=== PATIENT | male | born 1945 | race Caucasian/White ===

== ENCOUNTER 2017-03-17 10:01 | Emergency (ER) | payer MEDICARE, OTHER ==
--- NOTE | 2017-03-17 10:31 | ERNOTE ---
Chest Pain/Cardiac HPI Date of Service: 03/17/17 Chief Complaint: Palpitations Time Seen by Provider: 03/17/17 10:10 Source: patient Exam Limitations: no limitations Immunizations: IMMUNIZATION HX Immunizations Up to Date Yes History of Influenza Vaccine No Hx Pneumococcal Vaccination No Allergies/Adverse Reactions: Allergies povidone-iodine [From Betadine] Adverse Reaction (Mild, Verified 03/17/17 10:12) RASH TOPICAL IODINE ALLERGY soap [From Betadine] Adverse Reaction (Mild, Verified 03/17/17 10:12) RASH TOPICAL IODINE ALLERGY Home Medications: HOME MEDICATIONS Calcium/Mag Oxide/Vitamin D3 [Coral Calcium Capsule] 1 each PO DAILY 12/20/13 [ Last Taken 02/10/14] Lisinopril [Zestril] 10 mg PO DAILY 12/20/13 [Last Taken 02/11/14 07:00] Magnesium Oxide/Magnesium [Magnesium 300 mg Capsule] 300 mg PO DAILY 12/20/13 [ Last Taken 02/10/14 09:00] oxyCODONE HCL/ACETAMINOPHEN [Percocet 5 MG/325 MG] 2 tab PO Q4H PRN #0 tablet [Last Taken 02/08/14] Beta-Carotene(A) W-C , E/Min [Ocuvite] 1 tab PO DAILY 03/17/17 [Last Taken Unknown] Diltiazem HCl [Cardizem] 30 mg PO TID #90 tablet 03/17/17 [Last Taken Unknown] Indomethacin 50 mg PO BID 03/17/17 [Last Taken Unknown] Multivitamin [Multivitamins] 1 each PO DAILY 03/17/17 [Last Taken Unknown] Nortriptyline HCl [Pamelor] 25 mg PO HS 03/17/17 [Last Taken Unknown] tiZANidine HCL [Tizanidine HCl] 4 mg PO Q6H PRN 03/17/17 [Last Taken Unknown] Narrative: Pt. with known history of PACs and PVCs comes in with c/o Palpitations for years that have been increasing in frequency for the past few months. Pt. is going on vacation in a week and wanted a check up with his physician before he left on vacation to make sure that everything is ok and was referred here by the youth liaison officer. Pt. denies any chest pain, dizziness, NVD, fever, recent illness or injury. Pt. states that he was seen by a sap business analyst in august for a holter and echo and everything was normal except he was diagnosed with frequent PACs and PVCs. Pt. denies any new symptoms since this visit. Review of Systems - Review of Systems Constitutional: Present: no symptoms reported. Absent: recent illness, fever, chills, weakness, fatigue, malaise EYE: Present: no symptoms reported ENT: Present: no symptoms reported Respiratory: Present: no symptoms reported. Absent: shortness of breath, cough , wheezing Cardiology: Present: palpitations. Absent: chest pain, syncope, edema, claudication Gastrointestinal/Abdominal: Present: no symptoms reported. Absent: nausea, vomiting, diarrhea, abdominal pain Genitourinary: Present: no symptoms reported. Absent: frequency, pain, dysuria , decreased urinary output Musculoskeletal: Present: no symptoms reported. Absent: back pain, joint pain Skin: Present: no symptoms reported. Absent: rash, dryness, change in color Neurological: Present: no symptoms reported. Absent: headache, dizziness/light- headedness, numbness, tingling All Other Systems: All systems neg except as marked - Patient's Past Medical History Patient History - Cardiac/Respiratory: Arrhythmias - Social History Smoking Status: Never smoker - Immunizations Immunizations Up to Date: Yes Hx Pneumococcal Vaccination: No History of Influenza Vaccine: No Physical Exam - Physical Exam General Appearance: Present: wd/wn, alert, no apparent distress Head Exam: Present: normal inspection, no evidence of injury Eye Exam: Normal inspection: bilateral, PERRL: bilateral, EOMI: bilateral Ears, Nose, Throat: Present: normal ENT inspection, normal pharynx Neck: Present: normal inspection, nontender. Absent: lymphadenopathy (R), lymphadenopathy (L) Respiratory: Present: no respiratory distress, normal breath sounds, no accessory muscle use, chest nontender, lungs clear Cardiovascular/Chest: Present: regular rate, rhythm, no murmur, normal peripheral pulses Gastrointestinal/Abdominal: Present: normal bowel sounds, nontender, nondistended, soft Back Exam: Present: normal inspection Extremity Exam: Present: normal inspection Neurological Exam: Present: alert, oriented, normal mood/affect, no motor/ sensory deficits Skin Exam: Present: normal color, warm/dry. Absent: pallor, skin rash ED Progress - Date and Time Seen: Date and Time: 03/17/17 11:13 Pt. with boarderline cardiomegaly and mild interstitial edema but no elevated enzymes or evidence of heart attack 03/17/17 11:[address] Guerrier and he feels that results are likely related to occasional atrial arrrythmia and will start pt. on Cardizem 30 mg TID and he will follow up after his vacation. - Results and Orders Patient's Lab Results:: I have reviewed the patient's lab results. - Vital Signs Patient's Vital Signs:: I have reviewed the patient's vital signs. Vital Signs: Vital Signs 03/17/17 10:08 Temperature 36.7 C Pulse Rate 88 Respiratory 16 Rate Blood Pressure 177/74 O2 Sat by Pulse 99 Oximetry - EKG EKG: NSR, premature ventricular contraction - PAC, other EKG read: Reviewed by me EKG Comments: Interp by Dr Raymond - X-Ray X-Ray #1 X-Ray: chest Interpretation: Reviewed by me X-ray Comments: Borderline cardiomegaly and interstitial edema mild - Progress/Reassessment Chief Complaint: Palpitations Departure Clinical Impression: PAC (premature atrial contraction) - Departure Disposition: Home self-care Condition: Good Instructions: Heartbeats (How the Heart Works) Additional Instructions: Please make appointment to follow up with Dr Guerrier after you return from vacation. Please start cardizem three times a day as directed. Referrals: Sania Davis MD [Primary Care Provider] - Prescriptions: Diltiazem HCl [Cardizem] 30 mg PO TID #90 tablet
[2017-03-17 10:33] LABS: Hematocrit 41.2 % (42.0-52.0); Hemoglobin 13.8 gm/dL (13.5-18.0); Mean Cell Volume 84.4 fl (78-100); Mean Corpuscular Hemoglobin 28.3 pg (27-31); Mean Corpuscular Hgb Conc 33.5 g/dl (32-36); Mean Platelet Volume 9.9 fl (6.0-9.5); Neutrophil # 3.9 K/mm3 (1.3-6.0); Neutrophil % 67.2 % (42-75.0); Platelet Count 257 K/mm3 (150-450); Red Blood Count 4.88 M/mm3 (4.7-6.0); Red Cell Distribution Width 14.1 % (11.5-14.0); White Blood Count 5.7 K/mm3 (4.0-10.5)
[2017-03-17 10:55] LABS: Troponin I Less than 0.017 ng/ml (0.00-0.10)
[2017-03-17 10:58] LABS: ALT 18 U/L (19-67); AST 16 U/L (0-48); Albumin * 3.4 gm/dl (3.4-5.0); Alkaline Phosphatase * 86 U/L (50-170); Anion Gap 10.6 mmol/L (6.8-13.8); Bilirubin, Total 0.5 mg/dL (0.0-1.1); Blood Urea Nitrogen 18 mg/dL (6-23); Ca. Corrected For Albumin 9.2 mg/dL (8.4-10.2); Carbon Dioxide 27.7 mmol/L (24-32.6); Chloride 105 mmol/L (97-106); Glucose * 173 mg/dL (70-110); Potassium 4.3 mmol/L (3.4-4.6); Sodium 139 mmol/L (132-142); TSH * 1.128 uIU/mL (0.358-3.74); Total Protein 7.1 gm/dL (6.2-8.2)
[2017-03-17 11:32] VITALS: BP 141/77
== END 2017-03-17 11:47 | disposition home or self-care (01) ==
LOC: ER 10:01
DX: I49.1 Atrial premature depolarization (principal)

== ENCOUNTER 2018-09-09 00:46 | Inpatient (IN) ==
[2018-09-09] MEDS ORDERED: ALBUTEROL SULFATE/IPRATROPIUM 3 ML NEBU IH ONE ×2 (01:25→01:26)
[2018-09-09] MEDS ORDERED: NORMAL SALINE 500 ML IV ONE ×2 (01:30→02:17)
[2018-09-09 01:37] LABS: Hematocrit 33.6 % (42.0-52.0); Hemoglobin 11.1 gm/dL (13.5-18.0); Mean Cell Volume 88.4 fl (78-100); Mean Corpuscular Hemoglobin 29.2 pg (27-31); Mean Platelet Volume 10.2 fl (8-11.3); Platelet Count 220 K/mm3 (150-450); Red Cell Distribution Width 18.2 % (11.5-14.0); White Blood Count 2.9 K/mm3 (4.0-10.5)
[2018-09-09 01:52] LABS: Albumin * 2.2 gm/dl (3.4-5.0); Anion Gap 15.7 mmol/L (6.8-13.8); BUN/Creatinine Ratio 22.3 (9.0-21.6); Bilirubin, Total 0.5 mg/dL (0.0-1.1); Ca. Corrected For Albumin 8.5 mg/dL (8.4-10.2); Calcium * 7.4 mg/dL (7.9-10.9); Carbon Dioxide 21.5 mmol/L (24-32.6); Potassium 4.2 mmol/L (3.4-4.6); Total Protein 6.7 gm/dL (6.2-8.2)
[2018-09-09 01:53] LABS: Total Cells Counted 100
--- NOTE | 2018-09-09 02:03 | ERNOTE ---
Dyspnea - General Presenting Symptoms: shortness of breath, difficulty of breathing, wheezing Time Seen by Provider: 09/09/18 01:20 Source: patient, family, RN/MD, RN notes reviewed Exam Limitations: no limitations - Immun/Allergies/Home Medications Immunizations: IMMUNIZATION HX Immunizations Up to Date Yes History of Influenza Vaccine No Hx Pneumococcal Vaccination No Allergies/Adverse Reactions: Allergies povidone-iodine [From Betadine] Adverse Reaction (Mild, Verified 08/17/18 16:27) RASH TOPICAL IODINE ALLERGY soap [From Betadine] Adverse Reaction (Mild, Verified 08/17/18 16:27) RASH TOPICAL IODINE ALLERGY nabumetone Adverse Reaction (Verified 08/17/18 16:27) Home Medications: HOME MEDICATIONS RX: Magnesium Oxide/Magnesium [Magnesium 300 mg Capsule] 300 mg PO DAILY 12/20/13 [Last Taken 02/10/14 09:00] Multivitamin [Multivitamins] 1 each PO DAILY 03/17/17 [Last Taken Unknown] Apixaban [Eliquis] 5 mg PO BID 05/24/18 [Last Taken Unknown] Calcium Carbonate/Vitamin D3 [Calcium 600-Vit D3 500 Softgel] 1 each PO DAILY 05/24/18 [Last Taken Unknown] Ferrous Fum/Vit C/B12-If/Folic [Ferocon Capsule] 1 each PO DAILY 05/24/18 [Last Taken Unknown] Pioneer-3 Fatty Acids [Pioneer-3 1000 MG] 1,000 mg PO DAILY 05/24/18 [Last Taken Unknown] Pregabalin [Lyrica] 75 mg PO HS 05/24/18 [Last Taken Unknown] RX: Amiodarone HCl 200 mg PO DAILY 05/24/18 [Last Taken Unknown] RX: Saw [place] 320 mg PO DAILY 05/24/18 [Last Taken Unknown] Ubidecarenone/Vit E Acet [Co Q-10 100 mg Softgel] 1 each PO BID 05/24/18 [Last Taken Unknown] Vit D3/Folic Acid/B2/B6/B12 [Folgard Tablet] 1 each PO TID 05/24/18 [Last Taken Unknown] Dexamethasone [Decadron] 40 mg PO Q7D 30 Days #90 tab 06/07/18 [Last Taken Unknown] L.acidoph,Paracasei, B.lactis [Probiotic] 1 ea PO DAILY 08/01/18 [Last Taken Unknown] lisinopril 10 mg tablet 10 mg PO DAILY #90 tab 08/03/18 [Last Taken Unknown] - History of Present Illness Narrative: The patient is a 73-year-old male who arrives in the emergency department by private vehicle, with a chief complaint of shortness of breath associated with a cough for the last 2 weeks, "but it has been getting much worse over the last 36 hours, I am having a real hard time breathing right now." When the patient arrived in the ED, he had a 78% O2 saturation on room air, and was in marked respiratory distress, very tachypneic, with accessory muscles in use, and was a pale, ashen color. The patient states that he has a history of multiple myeloma, and saw his oncologist (Carlos Alberto Panchal) 2 weeks ago, "When I first started to get sick," and the patient was given a Z-Jeremy (azithromycin) and a metered-dose inhaler of albuterol. The patient completed the Z-Jeremy as ordered, and has continued to use the albuterol MDI, but has gotten significantly more sick over the last 36 hours, after he initially "started to feel better." The patient has a prior history of atrial fibrillation and takes amiodarone to control that. His primary care provider is Sania Davis. Severity: severe Treatment WATCH MECHANIC: by patient, albuterol Initiating event: Reports: upper resp illness Frequency of episodes: Reports: no prior episodes Modifying Factors - (Improves): Reports: albuterol Modifying Factors (Worsens): Reports: activity, coughing, cold Associated Symptoms-Dyspnea: Reports: cough, wheezing, anxiety Prior Treatment: Reports: recently seen, treated by physician Review of Systems - Review of Systems Constitutional: Present: weakness, fatigue, malaise EYE: Present: no symptoms reported ENT: Present: nose congestion, sore throat Respiratory: Present: shortness of breath, cough, wheezing Cardiology: Present: palpitations Gastrointestinal/Abdominal: Present: no symptoms reported Genitourinary: Present: no symptoms reported Musculoskeletal: Present: no symptoms reported Skin: Present: no symptoms reported Neurological: Present: numbness, tingling, pre-existing deficit - The patient has a persistent cough, he has had loud wheezing that keeps him awake at night, in combination with shortness of breath and coughing. 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 Endocrine: Present: no symptoms reported Hematologic/Lymphatic: Present: no symptoms reported Psych: Present: anxiety Medical History (Last Reviewed 09/09/18 @ 00:59 by Antoinette Huffman RN) Arthritis Atrial fibrillation Onset Date: ~05/2017 Irregular heart beat Multiple myeloma Onset Date: ~03/2017 Neuropathy secondary to chemotherapy Surgical History: Surgical History (Last Reviewed 09/09/18 @ 00:59 by Antoinette Huffman RN) Status post bilateral knee replacements Onset Date: ~2012 Family History: Family History (Last Reviewed 09/09/18 @ 00:59 by Antoinette Huffman RN) Mother Breast cancer Hypertension Father Pancreatic cancer Father Tumor of retina Daughter Breast cancer Sister Hypertension Asthma Social History: Preferred Language Yakut Smoking Status Never smoker Abuse History No History of abuse Psych History No pertinent hx Alcohol Use none Drug Use none No Social History Section defined Physical Exam - Physical Exam General Appearance: Present: alert, severe distress, anxious, obese Head Exam: Present: normal inspection, no evidence of injury, no tenderness w palpation. Absent: active bleeding, contusions, ecchymosis Eye Exam: Normal inspection: bilateral, PERRL: bilateral, EOMI: bilateral Ears, Nose, Throat: Present: nasal congestion, pharyngeal erythema, dry mucous membranes. Absent: sinus pain/drainage, tonsillar exudate Neck: Present: normal inspection, nontender, supple, full range of motion Respiratory: Present: respiratory distress, accessory muscle use, expiration (prolonged), rhonchi, wheezing. Absent: rales, pleural rub Cardiovascular/Chest: Present: regular rate, rhythm, no murmur, normal peripheral pulses Gastrointestinal/Abdominal: Present: normal bowel sounds, nontender, nondistended, soft, no organomegaly. Absent: guarding, rebound, mass Back Exam: Present: normal inspection, normal range of motion, no CVA tenderness, no vertebral tenderness Extremity Exam: Present: normal inspection, normal except -, non-tender, normal range of motion, no edema Neurological Exam: Present: alert, oriented, normal mood/affect, sales promoter II-XII nml as tested. Absent: facial droop, motor weakness, disoriented to person, disoriented to time, disoriented to place, disoriented to situation Skin Exam: Present: cool/dry, pallor. Absent: skin rash Lymphatic Exam: Present: no adenopathy Progress - Results and Orders Patient's Lab Results:: I have reviewed the patient's lab results. - Vital Signs Patient's Vital Signs:: I have reviewed the patient's vital signs. Vital Signs: Vital Signs 09/09/18 00:54 Temperature 37.0 C Pulse Rate 95 Respiratory Rate 26 H Blood Pressure 144/70 O2 Sat by Pulse Oximetry 78 L - EKG EKG #1 EKG read: Reviewed by me EKG Comments: EKG #1 on this ED admission shows a sinus rhythm at a rate of 99 with frequent supraventricular premature complexes that are normal complexes in with. No ST-T changes to suggest ischemia are noted. Compared to the most previous EKG on file dated for November 14, 2018 that showed a normal sinus rhythm at a rate of 87, with frequent premature atrial complexes. EKG #2 EKG: supraventricular tachycardia, atrial flutter, ST depression EKG read: Reviewed by me EKG Comments: EKG #2 during this ED admission was performed because the patient's heart rate increased above 120, he was found to be in atrial flutter/tachycardia, with a rapid ventricular response of 128, and moderate diffuse ST depression was noted. EKG #3 EKG read: Reviewed by me EKG Comments: EKG #3 was done 2 minutes after EKG #2 was collected, the patient was back into a sinus rhythm with a rate of 96, with frequent ventricular premature complexes that were narrow with, with occasional supraventricular premature complexes, also narrow and with, 1 PVC was noted, with no significant ST-T changes consistent with ischemia seen. - X-Ray X-Ray #1 X-Ray: chest Interpretation: Interp. by me, Reviewed by me X-ray Comments: Patient's chest x-ray shows no obvious infiltrates to suggest acute pneumonitis. - Progress/Reassessment Chief Complaint: Dyspnea Progress:: Improved Progress Note-Subjective: 09/09/18 03:57 After being given a DuoNeb breathing treatment, the patient states that he was breathing easier, with less wheezing, less tightness in his chest, and his work of breathing was decreased substantially compared to when he first arrived in the emergency department. - Transfer of Care Expected Disposition: Admit Plan - Plan Plan: The patient was discussed at 4:[address] Sonia Hartmann, the on-call physician for medicine admissions to the hospital. We discussed the fact that the patient exhibited acute respiratory failure with hypoxemia when first admitted to the emergency department. The patient is still significantly hypoxemic, requiring 4 L of nasal cannula oxygen to keep SaO2 greater than 90%. Chest x-ray shows no obvious infiltrate consistent with acute pneumonia, however serology shows influenza A infection. Dr. Hartmann requested that I discuss Mr. Webb's care with an infectious disease bridal stylist sales consultant at the [facility] in [place]. I discussed the patient's case with Rancho Jones MD, and infectious disease bridal stylist sales consultant at the [facility], and he recommended treating the patient with Tamiflu for the influenza A test being positive, as the patient's acute decompensation over the last 36 hours may suggest this was caused by being infected recently with influenza A. He would also recommend covering the patient with cefepime antibiotic, given the fact the patient is immune suppressed, on chemotherapy for multiple myeloma. Holding orders were written for the patient and he was transferred to an inpatient observation bed, awaiting Dr. Hartmann to see the patient and write additional orders. The patient was in stable and improved condition at the time of transfer from the emergency department to the inpatient layne. Departure Clinical Impression: Acute respiratory failure with hypoxemia, Intermittent palpitations, IgG myeloma, Influenza A - Departure Disposition: Short Term Hospital Inpatient Condition: Fair
[2018-09-09 02:13] LABS: Band 6 % (0-2.0); Lymphocyte 5 % (20-51); Monocyte 4 % (0-9); Neutrophil 85 % (42-75); Neutrophil # 2.5 K/mm3 (1.3-6.0); Platelet Estimate Normal (NORMAL)
[2018-09-09 02:14] LABS: Anisocytosis 2+
[2018-09-09] MEDS ORDERED: OSELTAMIVIR PHOSPHATE 75 MG CAPSULE PO ONE (05:49)
[2018-09-09] MEDS ORDERED: CEFEPIME HCL 1 GM/100 ML BAG IV ONE (05:51)
[2018-09-09] MEDS: AMIODARONE HCL 200 MG TABLET PO SCH (11:07)
[2018-09-09] MEDS ORDERED: ACETAMINOPHEN 325 MG TABLET PO PRN (11:24)
[2018-09-09] MEDS ORDERED: CEFEPIME HCL 2 GM in DEXTROSE 5 % IN WATER 100 ML IV SCH ×2 (11:30)
[2018-09-09] MEDS ORDERED: DEXAMETHASONE 4 MG TABLET PO SCH (11:30)
[2018-09-09] MEDS ORDERED: AMIODARONE HCL 200 MG TABLET PO SCH (12:00)
--- NOTE | 2018-09-09 12:01 | HP ---
Chief Complaint - Chief Complaint Date of Service: 09/09/18 Time of Service: 11:45 Chief Complaint: I have shortness of breath and difficulty breathing for several days History of Present Illness: 73-year-old male with past medical history of multiple myeloma, peripheral neuropathy, atrial fibrillation, hypertension, was brought to our ER due to worsening shortness of breath and eventual marked respiratory distress that has been worsening over the last 48 hours. Patient reports that he has been receiving treatment for his multiple myeloma with chemotherapy and developed a chronic hacking cough that started 2 weeks ago but afternoon he started having shortness of breath which worsened last night. Upon arriving to our ER the patient had a saturation below 80 and required oxygen therapy. Labs revealed a positive influenza A, and neutropenia secondary to his multiple myeloma. He denied fever or chills but patient is known to be immunosuppressed due to his chemotherapy so his clinical presentation is not very reliable. Medical History (Last Reviewed 09/09/18 @ 07:22 by Suri Sapp RN) Arthritis Atrial fibrillation Onset Date: ~05/2017 Irregular heart beat Multiple myeloma Onset Date: ~03/2017 Neuropathy secondary to chemotherapy Surgical History: Surgical History (Last Reviewed 09/09/18 @ 07:22 by Suri Sapp RN) Status post bilateral knee replacements Onset Date: ~2012 Family History: Family History (Last Reviewed 09/09/18 @ 07:22 by Suri Sapp RN) Mother Breast cancer Hypertension Father Pancreatic cancer Father Tumor of retina Daughter Breast cancer Sister Hypertension Asthma Social History: Patient Lives/Resources With Spouse Utilized Occupation Retired Preferred Language Maltese Do you have any yazidism or Yes: Confucianism cultural preference? Smoking Status Never smoker Have you smoked in the past 12 No months Do you dip or chew tobacco No Abuse History No History of abuse Psych History No pertinent hx Alcohol Use none Drug Use none No Social History Section defined Peds Patient Hx - Developmental: No Pertinent Hx Peds Patient Hx - Medical: No Pertinent Hx Peds Patient Hx - Cardiac/Respiratory: No Pertinent Hx Peds Patient Hx - Surgical: No Surgical History Patient History - Cancer: No Hx of Cancer Review Of Systems (GEN) - Review of Systems Generalized/Overall Review: Present: No Symptoms Reported EENTM: Present: No Symptoms Reported Respiratory: Present: Cough, Shortness of Breath Cardiac: Present: No Symptoms Reported Abdominal: Present: No Symptoms Reported Genitourinary: Present: No Symptoms Reported Musculoskeletal: Present: No Symptoms Reported Neurological: Present: No Symptoms Reported Skin: Present: No Symptoms Reported Endocrine: Present: No Symptoms Reported Immunizations: IMMUNIZATION HX Immunizations Up to Date Yes History of Influenza Vaccine No Hx Pneumococcal Vaccination No Allergies/Adverse Reactions: Allergies Allergy/AdvReac Type Severity Reaction Status Date / Time povidone-iodine AdvReac Mild RASH Verified 09/09/18 07:22 [From Betadine] soap [From Betadine] AdvReac Mild RASH Verified 09/09/18 07:22 [email or web address] AdvReac Verified 09/09/18 07:22 Home Medications: HOME MEDICATIONS Magnesium Oxide/Magnesium [Magnesium 300 mg Capsule] 300 mg PO DAILY 12/20/13 [Last Taken 02/10/14 09:00] Multivitamin [Multivitamins] 1 each PO DAILY 03/17/17 [Last Taken Unknown] Amiodarone HCl 200 mg PO DAILY@1200 05/24/18 [Last Taken Unknown] Apixaban [Eliquis] 5 mg PO BID 05/24/18 [Last Taken Unknown] Calcium Carbonate/Vitamin D3 [Calcium 600-Vit D3 500 Softgel] 1 each PO DAILY 05/24/18 [Last Taken Unknown] Ferrous Fum/Vit C/B12-If/Folic [Ferocon Capsule] 1 each PO DAILY 05/24/18 [Last Taken Unknown] [place]-3 Fatty Acids [[place]-3 1000 MG] 1,000 mg PO DAILY 05/24/18 [Last Taken Unknown] Pregabalin [Lyrica] 75 mg PO HS 05/24/18 [Last Taken Unknown] [place] 320 mg PO DAILY 05/24/18 [Last Taken Unknown] Ubidecarenone/Vit E Acet [Co Q-10 100 mg Softgel] 1 each PO BID 05/24/18 [Last Taken Unknown] Vit D3/Folic Acid/B2/B6/B12 [Folgard Tablet] 1 each PO TID 05/24/18 [Last Taken Unknown] Dexamethasone [Decadron] 40 mg PO Q7D 30 Days #90 tab 06/07/18 [Last Taken ] L.acidoph,Paracasei, B.lactis [Probiotic] 1 ea PO DAILY 08/01/18 [Last Taken Unknown] lisinopril 10 mg tablet 10 mg PO DAILY #90 tab 08/03/18 [Last Taken Unknown] Exam - Exam Vital Signs: Vital Signs - Last Taken Temp 36.9 C 09/09/18 07:10 Pulse 89 09/09/18 07:10 Resp 24 H 09/09/18 07:10 BP 143/68 09/09/18 07:10 Pulse Ox 92 L 09/09/18 07:10 Constitutional: Present: Alert, Oriented x3, Cooperative, Well developed, Well nourished, No distress, Elderly ENT Exam: Present: normal ENT inspection, hearing grossly normal, pharynx normal, TMs normal Eye Exam: bilateral eye: normal inspection, PERRL, EOMI Neck: Present: non-tender, full range of motion, supple, normal inspection, trachea midline Back Exam: Present: normal inspection, no CVA tenderness, no vertebral tend erness Breasts: Present: Exam deferred Respiratory: Present: crackles - Right upper lobe crackles Cardiovascular/Chest: Present: normal peripheral pulses, no chest tenderness, no edema, no gallop, no JVD, no murmur, irregularly irregular Peripheral Pulses: carotid (R): 3+, carotid (L): 3+, femoral (R): 3+, femoral (L): 3+, dorsalis-pedis (R): 3+, dorsalis-pedis (L): 3+ Abdomen: Present: Normal bowel sounds, soft, nontender, nondistended, no rebound tenderness, no hepatospenomegaly, no masses /Rectal: Present: Exam deferred Extremity: Present: normal range of motion, non-tender, normal inspection, no pedal edema, no calf tenderness, normal capillary refill, pelvis stable Skin Exam: Present: normal color, warm/dry, no cyanosis Lymphatic: Present: no adenopathy Neurologic: Present: 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 tested Appearance: Present: appropriate appearance Eye contact: Present: cooperative, good eye contact, normal speech Thoughts: Present: normal thought pattern Diagnostic Studies: Abnormal Lab Results 09/09/18 09/09/18 09/09/18 Range/Units 01:25 01:30 01:30 WBC 2.9 L (4.0-10.5) K/mm3 RBC 3.80 L (4.7-6.0) M/mm3 Hgb 11.1 L (13.5-18.0) gm/dL Hct 33.6 L (42.0-52.0) % RDW 18.2 H (11.5-14.0) % Neutrophils % (Manual) 85 H (42-75) % Band Neuts % (Manual) 6 H (0-2.0) % Lymphocytes % (Manual) 5 L (20-51) % Lymphocytes # (Manual) 0.1 L (1.5-3.5) k/mm3 pCO2 24.3 L (35.0-48.0) mmHg pO2 52.8 L (83.0-108.0) mmHg HCO3 19.1 L (21.0-28.0) mmol/L Base Excess -2.5 L (-2.0-3.0) mmol/L ABG pH 7.51 H (7.35-7.45) ABG O2 Sat (Measured) 91.2 L (94.0-98.0) % Carbon Dioxide 21.5 L (24-32.6) mmol/L Anion Gap 15.7 H (6.8-13.8) mmol/L BUN/Creatinine Ratio 22.3 H (9.0-21.6) Random Glucose 156 H (70-110) mg/dL Calcium 7.4 L (7.9-10.9) mg/dL AST 49 H (0-48) U/L Albumin 2.2 L (3.4-5.0) gm/dl Influenza Type A Ag (NEGATIVE) 09/09/18 Range/Units 03:00 WBC (4.0-10.5) K/mm3 RBC (4.7-6.0) M/mm3 Hgb (13.5-18.0) gm/dL Hct (42.0-52.0) % RDW (11.5-14.0) % Neutrophils % (Manual) (42-75) % Band Neuts % (Manual) (0-2.0) % Lymphocytes % (Manual) (20-51) % Lymphocytes # (Manual) (1.5-3.5) k/mm3 pCO2 (35.0-48.0) mmHg pO2 (83.0-108.0) mmHg HCO3 (21.0-28.0) mmol/L Base Excess (-2.0-3.0) mmol/L ABG pH (7.35-7.45) ABG O2 Sat (Measured) (94.0-98.0) % Carbon Dioxide (24-32.6) mmol/L Anion Gap (6.8-13.8) mmol/L BUN/Creatinine Ratio (9.0-21.6) Random Glucose (70-110) mg/dL Calcium (7.9-10.9) mg/dL AST (0-48) U/L Albumin (3.4-5.0) gm/dl Influenza Type A Ag Positive H (NEGATIVE) Laboratory Results WBC 2.9 K/mm3 (4.0-10.5) L 09/09/18 01:30 RBC 3.80 M/mm3 (4.7-6.0) L 09/09/18 01:30 Hgb 11.1 gm/dL (13.5-18.0) L 09/09/18 01:30 Hct 33.6 % (42.0-52.0) L 09/09/18 01:30 MCV 88.4 fl (78-100) 09/09/18 01:30 MCH 29.2 pg (27-31) 09/09/18 01:30 MCHC 33.0 g/dl (32-36) 09/09/18 01:30 RDW 18.2 % (11.5-14.0) H 09/09/18 01:30 Plt Count 220 K/mm3 (150-450) 09/09/18 01:30 MPV 10.2 fl (8-11.3) 09/09/18 01:30 Neutrophils % (Manual) 85 % (42-75) H 09/09/18 01:30 Band Neuts % (Manual) 6 % (0-2.0) H 09/09/18 01:30 Lymphocytes % (Manual) 5 % (20-51) L 09/09/18 01:30 Monocytes % (Manual) 4 % (0-9) 09/09/18 01:30 Neutrophils # (Manual) 2.5 K/mm3 (1.3-6.0) 09/09/18 01:30 Lymphocytes # (Manual) 0.1 k/mm3 (1.5-3.5) L 09/09/18 01:30 Monocytes # (Manual) 0.1 k/mm3 (0.0-1.0) 09/09/18 01:30 Platelet Estimate Normal (NORMAL) 09/09/18 01:30 Anisocytosis 2+ 09/09/18 01:30 pCO2 24.3 mmHg (35.0-48.0) L 09/09/18 01:25 pO2 52.8 mmHg (83.0-108.0) L 09/09/18 01:25 HCO3 19.1 mmol/L (21.0-28.0) L 09/09/18 01:25 Total CO2 19.9 mmol/L (19.0-24.0) 09/09/18 01:25 Base Excess -2.5 mmol/L (-2.0-3.0) L 09/09/18 01:25 ABG pH 7.51 (7.35-7.45) H 09/09/18 01:25 ABG O2 Sat (Measured) 91.2 % (94.0-98.0) L 09/09/18 01:25 Sodium 134 mmol/L (132-142) 09/09/18 01:30 Plasma Sodium 135 mmol/L (130-142) 09/09/18 01:30 Potassium 4.2 mmol/L (3.4-4.6) 09/09/18 01:30 Chloride 101 mmol/L (97-106) 09/09/18 01:30 Carbon Dioxide 21.5 mmol/L (24-32.6) L 09/09/18 01:30 Anion Gap 15.7 mmol/L (6.8-13.8) H 09/09/18 01:30 BUN 23 mg/dL (6-23) 09/09/18 01:30 Creatinine 1.03 mg/dL (0.4-1.4) 09/09/18 01:30 Est GFR (Non-Af Amer) 75 mL/min (60-130) D 09/09/18 01:30 BUN/Creatinine Ratio 22.3 (9.0-21.6) H 09/09/18 01:30 Random Glucose 156 mg/dL (70-110) H 09/09/18 01:30 Calcium 7.4 mg/dL (7.9-10.9) L 09/09/18 01:30 Calcium Adj for Albumin 8.5 mg/dL (8.4-10.2) 09/09/18 01:30 Total Bilirubin 0.5 mg/dL (0.0-1.1) 09/09/18 01:30 AST 49 U/L (0-48) H 09/09/18 01:30 ALT 53 U/L (19-67) 09/09/18 01:30 Alkaline Phosphatase 92 U/L (50-170) 09/09/18 01:30 Troponin I Less than 0.017 ng/mL (0.00-0.10) 09/09/18 01:30 Total Protein 6.7 gm/dL (6.2-8.2) 09/09/18 01:30 Albumin 2.2 gm/dl (3.4-5.0) L 09/09/18 01:30 Influenza Type A Ag Positive (NEGATIVE) H 09/09/18 03:00 Influenza Type B Ag Negative (NEGATIVE) 09/09/18 03:00 Assessment/Plan - Narrative Narrative: Patient was evaluated at bedside and medical chart was reviewed and decision to admit to inpatient for right upper lobe pneumonia and a PSI of 4 was taken. Patient was administered Tamiflu for influenza A infection as well as IV antibiotics for the pneumonia. He was also treated with IV hydration for mild dehydration and respiratory therapy with DuoNeb which has improved his breathing. ABGs demonstrated an improvement on his blood gases so we will keep him on oxygen by nasal cannula for now and repeat ABG in the morning. Follow-up labs has been ordered for tomorrow morning to evaluate electrolytes. Sputum culture was also ordered for specific antibiotic therapy. Patient was also placed in isolation due to his immunosuppression. Patient develops periodic tachycardia secondary to his atrial fibrillation but he has been administered his regular amiodarone and heart rate has improved, will continue to monitor him on telemetry. - Assessment/Plan (1) Right upper lobe pneumonia Problem: Acute (2) Influenza A Problem: Acute (3) Multiple myeloma Problem: Acute (4) Atrial fibrillation Problem: Chronic (5) Respiratory difficulty Problem: Acute
[2018-09-09] MEDS: MULTIVITAMINS 1 CAP CAPSULE PO SCH (12:56)
[2018-09-09] MEDS: OMEGA-3 FATTY ACIDS 1 CAP CAPSULE PO SCH (12:56)
[2018-09-09] MEDS: APIXABAN 5 MG TABLET PO SCH ×2 (12:56→21:52)
[2018-09-09] MEDS: SACCHAROMYCES BOULARDII 250 MG CAPSULE PO SCH (12:56)
[2018-09-09] MEDS: CALCIUM CARBONATE/VITAMIN D3 1 TAB TABLET PO SCH (12:56)
[2018-09-09] MEDS: DOCUSATE SODIUM 100 MG CAPSULE PO SCH (12:57)
[2018-09-09] MEDS: LISINOPRIL 10 MG TABLET PO SCH (12:57)
[2018-09-09] MEDS: CEFEPIME HCL 2 GM in DEXTROSE 5 % IN WATER 100 ML IV SCH ×4 (14:11→21:53)
[2018-09-09] MEDS: SAW PALMETTO 320 MG PO SCH (14:17)
[2018-09-09] MEDS: CO Q10 100 MG PO SCH (14:17)
[2018-09-09] MEDS: FEROCON PO SCH (14:19)
[2018-09-09] MEDS: MAGNESIUM 300 MG PO SCH (14:20)
[2018-09-09] MEDS: ALBUTEROL SULFATE/IPRATROPIUM 3 ML NEBU IH PRN ×2 (16:26→22:10)
[2018-09-09] MEDS: METOPROLOL TARTRATE 25 MG TABLET PO SCH (18:02)
[2018-09-09] MEDS: OSELTAMIVIR PHOSPHATE 75 MG CAPSULE PO SCH (21:52)
[2018-09-09] MEDS: PREGABALIN 75 MG CAPSULE PO SCH (21:53)
[2018-09-10] MEDS: CEFEPIME HCL 2 GM in DEXTROSE 5 % IN WATER 100 ML IV SCH ×6 (05:45→21:30)
[2018-09-10 06:34] LABS: Albumin * 1.7 gm/dl (3.4-5.0); Anion Gap 14.6 mmol/L (6.8-13.8); BUN/Creatinine Ratio 23.6 (9.0-21.6); Bilirubin, Total 0.5 mg/dL (0.0-1.1); Calcium * 7.5 mg/dL (7.9-10.9); Carbon Dioxide 22.1 mmol/L (24-32.6); Potassium 4.7 mmol/L (3.4-4.6); Total Protein 5.5 gm/dL (6.2-8.2)
[2018-09-10] MEDS: OSELTAMIVIR PHOSPHATE 75 MG CAPSULE PO SCH ×2 (08:39→21:30)
[2018-09-10] MEDS: FAMOTIDINE 20 MG TABLET PO SCH (08:39)
[2018-09-10] MEDS: AMIODARONE HCL 200 MG TABLET PO SCH (08:39)
[2018-09-10] MEDS: METOPROLOL TARTRATE 25 MG TABLET PO SCH ×2 (08:40→21:29)
[2018-09-10] MEDS: MULTIVITAMINS 1 CAP CAPSULE PO SCH (08:48)
[2018-09-10] MEDS: LISINOPRIL 10 MG TABLET PO SCH (08:48)
[2018-09-10] MEDS: DOCUSATE SODIUM 100 MG CAPSULE PO SCH (08:48)
[2018-09-10] MEDS: APIXABAN 5 MG TABLET PO SCH ×2 (08:49→21:29)
[2018-09-10] MEDS: SACCHAROMYCES BOULARDII 250 MG CAPSULE PO SCH (08:49)
[2018-09-10] MEDS: CALCIUM CARBONATE/VITAMIN D3 1 TAB TABLET PO SCH (08:49)
[2018-09-10] MEDS: OMEGA-3 FATTY ACIDS 1 CAP CAPSULE PO SCH (08:49)
[2018-09-10] MEDS ORDERED: BENZONATATE 100 MG CAPSULE PO PRN (10:49)
--- NOTE | 2018-09-10 10:57 | PN ---
Subjective - Date and Time Seen Date: 09/10/18 Time: 10:50 Subjective Narrative: I have shortness of breath and cough Objective Objective Narrative: 73-year-old male admitted for right-sided bronchopneumonia and influ heide type a was evaluated at bedside and was found to be afebrile and in no acute distress, however patient continues with a persistent cough and occasional shortness of breath that requires treatment with DuoNeb. After the breathing treatments he reports improvement saturations also improved. Patient had an abnormal ABG this morning however pulse oximeter demonstrated a oxygen saturation of 96% with nasal cannula. Patient's respiratory function has improved since arriving and his only complaint is the cough. Therefore antitussives and decongestants were ordered. Patient has not had any recurrence of fever or chills however auscultation of his lungs demonstrate marked crackles that is worse on the right upper lobe. We will continue IV antibiotics as well as Tamiflu and keep patient hospitalized for additional days of treatment. - Review of Systems Generalized/Overall Review: Reports: Weakness EENTM: Reports: No Symptoms Reported Respiratory: Reports: Cough, Shortness of Breath Cardiac: Reports: No Symptoms Reported Abdominal: Reports: No Symptoms Reported Genitourinary Symptoms: Reports: No Symptoms Reported Musculoskeletal Complaints: Reports: No Symptoms Reported Neurological: Reports: No Symptoms Reported Skin: Reports: No Symptoms Reported Endocrine: Reports: No Symptoms Reported - Vitals Vitals: Last Vital Signs Temp 37.3 C 09/10/18 06:42 Pulse 83 09/10/18 08:48 Resp 24 H 09/10/18 06:42 BP 116/60 09/10/18 08:48 Pulse Ox 92 L 09/10/18 06:42 - Abnormal Lab Findings Abnormal Lab Findings: Abnormal Lab Results 09/09/18 09/10/18 09/10/18 Range/Units 14:22 06:00 06:10 pCO2 26.6 L 25.6 L (35.0-48.0) mmHg pO2 54.0 L 48.0 L (83.0-108.0) mmHg HCO3 20.7 L 20.9 L (21.0-28.0) mmol/L ABG pH 7.51 H 7.53 H (7.35-7.45) ABG O2 Sat (Measured) 91.5 L 89.0 L (94.0-98.0) % Potassium 4.7 H (3.4-4.6) mmol/L Carbon Dioxide 22.1 L (24-32.6) mmol/L Anion Gap 14.6 H (6.8-13.8) mmol/L BUN 26 H (6-23) mg/dL BUN/Creatinine Ratio 23.6 H (9.0-21.6) Random Glucose 122 H (70-110) mg/dL Calcium 7.5 L (7.9-10.9) mg/dL AST 52 H (0-48) U/L Total Protein 5.5 L (6.2-8.2) gm/dL Albumin 1.7 L (3.4-5.0) gm/dl - Exam Constitutional: Present: Alert, Oriented x3, Cooperative, Well developed, Well nourished, No distress, Elderly ENT Exam: Present: normal ENT inspection, hearing grossly normal, pharynx normal, TMs normal Neck: Present: non-tender, full range of motion, supple, normal inspection, trachea midline Breasts: Present: Exam deferred Respiratory: Present: crackles Cardiovascular/Chest: Present: normal peripheral pulses, regular rate, rhythm, no chest tenderness, no edema, no gallop, no JVD, no murmur Abdomen: Present: Normal bowel sounds, soft, nontender, nondistended, no rebound tenderness, no hepatospenomegaly, no masses /Rectal: Present: Exam deferred Extremity: Present: normal range of motion, non-tender, normal inspection, no pedal edema, no calf tenderness, normal capillary refill Skin Exam: Present: normal color, warm/dry, no cyanosis Lymphatic: Present: no adenopathy Neurologic: Present: 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 We will reevaluate patient with labs in the morning. In the meantime he is to remain on nasal cannula to maintain saturation above 93%. - Problems/Diagnosis (1) Right upper lobe pneumonia Problem: Acute (2) Influenza A Problem: Acute (3) Multiple myeloma Problem: Chronic (4) Atrial fibrillation Problem: Chronic (5) Respiratory difficulty Problem: Acute
[2018-09-10] MEDS ORDERED: NORMAL SALINE 1,000 ML IV ONE (11:00)
[2018-09-10] MEDS: guaiFENesin 100 MG/5 ML BTL PO PRN (15:08)
[2018-09-10] MEDS: ALBUTEROL SULFATE/IPRATROPIUM 3 ML NEBU IH PRN (15:19)
[2018-09-10] MEDS: PREGABALIN 75 MG CAPSULE PO SCH (21:29)
[2018-09-11] MEDS: CEFEPIME HCL 2 GM in DEXTROSE 5 % IN WATER 100 ML IV SCH ×6 (05:17→22:24)
[2018-09-11 06:06] LABS: Hematocrit 29.9 % (42.0-52.0); Hemoglobin 9.8 gm/dL (13.5-18.0); Mean Cell Volume 87.9 fl (78-100); Mean Corpuscular Hemoglobin 28.8 pg (27-31); Mean Corpuscular Hgb Conc 32.8 g/dl (32-36); Mean Platelet Volume 9.8 fl (8-11.3); Platelet Count 176 K/mm3 (150-450); Red Cell Distribution Width 18.1 % (11.5-14.0); White Blood Count 3.4 K/mm3 (4.0-10.5)
[2018-09-11 06:20] LABS: Total Cells Counted 100
[2018-09-11 06:28] LABS: Albumin * 1.6 gm/dl (3.4-5.0); Anion Gap 14.3 mmol/L (6.8-13.8); BUN/Creatinine Ratio 24.3 (9.0-21.6); Bilirubin, Total 0.5 mg/dL (0.0-1.1); Ca. Corrected For Albumin 9.4 mg/dL (8.4-10.2); Calcium * 7.8 mg/dL (7.9-10.9); Carbon Dioxide 22.3 mmol/L (24-32.6); Potassium 4.6 mmol/L (3.4-4.6); Total Protein 5.5 gm/dL (6.2-8.2)
[2018-09-11 06:30] LABS: Band 9 % (0-2.0); Immature Granulocyte 1 (0-1); Lymphocyte 9 % (20-51); Monocyte 3 % (0-9); Neutrophil 78 % (42-75); Neutrophil # 2.7 K/mm3 (1.3-6.0)
[2018-09-11 06:32] LABS: Anisocytosis 1+
[2018-09-11] MEDS: CO Q10 100 MG PO SCH ×4 (08:17→20:33)
[2018-09-11] MEDS: FEROCON PO SCH ×2 (08:18→08:29)
[2018-09-11] MEDS: MAGNESIUM 300 MG PO SCH ×2 (08:18→08:29)
[2018-09-11] MEDS: LISINOPRIL 10 MG TABLET PO SCH (08:18)
[2018-09-11] MEDS: SAW PALMETTO 320 MG PO SCH ×2 (08:18→08:29)
[2018-09-11] MEDS: CALCIUM CARBONATE/VITAMIN D3 1 TAB TABLET PO SCH (08:18)
[2018-09-11] MEDS: DOCUSATE SODIUM 100 MG CAPSULE PO SCH (08:18)
[2018-09-11] MEDS: APIXABAN 5 MG TABLET PO SCH ×2 (08:18→20:31)
[2018-09-11] MEDS: AMIODARONE HCL 200 MG TABLET PO SCH (08:19)
[2018-09-11] MEDS: SACCHAROMYCES BOULARDII 250 MG CAPSULE PO SCH (08:19)
[2018-09-11] MEDS: METOPROLOL TARTRATE 25 MG TABLET PO SCH ×2 (08:19→20:32)
[2018-09-11] MEDS: MULTIVITAMINS 1 CAP CAPSULE PO SCH (08:19)
[2018-09-11] MEDS: OSELTAMIVIR PHOSPHATE 75 MG CAPSULE PO SCH ×2 (08:19→20:32)
[2018-09-11] MEDS: OMEGA-3 FATTY ACIDS 1 CAP CAPSULE PO SCH (08:19)
[2018-09-11] MEDS: FAMOTIDINE 20 MG TABLET PO SCH (08:19)
[2018-09-11] MEDS: guaiFENesin 100 MG/5 ML BTL PO PRN (08:20)
--- NOTE | 2018-09-11 11:41 | PN ---
Subjective - Date and Time Seen Date: 09/11/18 Time: 11:30 Subjective Narrative: I have shortness of breath and cough Objective Objective Narrative: 73-year-old male admitted for right-sided bronchopneumonia and influ heide type a was evaluated at bedside and was found to be acutely ill and on a BiPAP machine due to worsening respiratory function. Patient also has a persistent dry cough and requires breathing treatments [id number]. He is vital signs have remained stable and there has been been any recurrence of fever however patient's auscultation demonstrate weight worsening crackles in multiple soto of both lungs. Follow-up chest x-ray ordered yesterday demonstrated worsening right-sided pneumonia and now left-sided pneumonia. Given these findings and the lack of improvement in the patient's condition decision to add vancomycin to his treatment was taken. Follow-up labs were ordered as well as ABG for the morning to monitor his progress. For now we will keep patient on a BiPAP machine to improve his oxygenation and continue to monitor him closely. - Review of Systems Generalized/Overall Review: Reports: Weakness EENTM: Reports: No Symptoms Reported Respiratory: Reports: Cough, Shortness of Breath Cardiac: Reports: No Symptoms Reported Abdominal: Reports: No Symptoms Reported Genitourinary Symptoms: Reports: No Symptoms Reported Musculoskeletal Complaints: Reports: No Symptoms Reported Neurological: Reports: No Symptoms Reported Skin: Reports: No Symptoms Reported Endocrine: Reports: No Symptoms Reported - Vitals Vitals: Last Vital Signs Temp 36.4 C 09/11/18 10:38 Pulse 80 09/11/18 10:38 Resp 26 H 09/11/18 10:38 BP 140/86 09/11/18 10:38 Pulse Ox 97 09/11/18 10:38 - Abnormal Lab Findings Abnormal Lab Findings: Abnormal Lab Results 09/10/18 09/11/18 09/11/18 Range/Units 17:49 06:00 06:00 WBC (4.0-10.5) K/mm3 RBC (4.7-6.0) M/mm3 Hgb (13.5-18.0) gm/dL Hct (42.0-52.0) % RDW (11.5-14.0) % Neutrophils % (Manual) (42-75) % Band Neuts % (Manual) (0-2.0) % Lymphocytes % (Manual) (20-51) % Lymphocytes # (Manual) (1.5-3.5) k/mm3 pCO2 25.1 L 26.4 L (35.0-48.0) mmHg pO2 61.8 L 62.4 L (83.0-108.0) mmHg HCO3 18.7 L 19.2 L (21.0-28.0) mmol/L Base Excess -3.3 L -3.3 L (-2.0-3.0) mmol/L ABG pH 7.49 H 7.48 H (7.35-7.45) ABG O2 Sat (Measured) 93.9 L 93.8 L (94.0-98.0) % Carbon Dioxide 22.3 L (24-32.6) mmol/L Anion Gap 14.3 H (6.8-13.8) mmol/L BUN 27 H (6-23) mg/dL BUN/Creatinine Ratio 24.3 H (9.0-21.6) Calcium 7.8 L (7.9-10.9) mg/dL AST 66 H (0-48) U/L ALT 68 H (19-67) U/L Total Protein 5.5 L (6.2-8.2) gm/dL Albumin 1.6 L (3.4-5.0) gm/dl 09/11/18 Range/Units 06:00 WBC 3.4 L (4.0-10.5) K/mm3 RBC 3.40 L (4.7-6.0) M/mm3 Hgb 9.8 L (13.5-18.0) gm/dL Hct 29.9 L (42.0-52.0) % RDW 18.1 H (11.5-14.0) % Neutrophils % (Manual) 78 H (42-75) % Band Neuts % (Manual) 9 H (0-2.0) % Lymphocytes % (Manual) 9 L (20-51) % Lymphocytes # (Manual) 0.3 L (1.5-3.5) k/mm3 pCO2 (35.0-48.0) mmHg pO2 (83.0-108.0) mmHg HCO3 (21.0-28.0) mmol/L Base Excess (-2.0-3.0) mmol/L ABG pH (7.35-7.45) ABG O2 Sat (Measured) (94.0-98.0) % Carbon Dioxide (24-32.6) mmol/L Anion Gap (6.8-13.8) mmol/L BUN (6-23) mg/dL BUN/Creatinine Ratio (9.0-21.6) Calcium (7.9-10.9) mg/dL AST (0-48) U/L ALT (19-67) U/L Total Protein (6.2-8.2) gm/dL Albumin (3.4-5.0) gm/dl - Exam Constitutional: Present: Alert, Oriented x3, Cooperative, Well developed, Well nourished, No distress, Elderly ENT Exam: Present: normal ENT inspection, hearing grossly normal, pharynx normal, TMs normal Neck: Present: non-tender, full range of motion, supple, normal inspection, trachea midline Breasts: Present: Exam deferred Respiratory: Present: crackles - Bilateral crackles in multiple lung soto Cardiovascular/Chest: Present: normal peripheral pulses, regular rate, rhythm, no chest tenderness, no edema, no gallop, no JVD, no murmur Abdomen: Present: Normal bowel sounds, soft, nontender, nondistended, no rebound tenderness, no hepatospenomegaly, no masses /Rectal: Present: Exam deferred Extremity: Present: normal range of motion, non-tender, normal inspection, no pedal edema, no calf tenderness Skin Exam: Present: normal color, warm/dry, no cyanosis Lymphatic: Present: no adenopathy 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 We will follow-up in the morning with labs and ABG. In the meantime patient will remain on BiPAP machine and breathing treatments [id number] as well as antitussives. - Problems/Diagnosis (1) Right upper lobe pneumonia Problem: Acute (2) Influenza A Problem: Acute (3) Multiple myeloma Problem: Chronic (4) Atrial fibrillation Problem: Chronic (5) Respiratory difficulty Problem: Acute (6) Bilateral pneumonia Problem: Acute (7) Respiratory failure Problem: Acute Qualifiers: Chronicity: acute Respiratory failure complication: hypoxia Qualified Code(s): J96.01 - Acute respiratory failure with hypoxia
[2018-09-11] MEDS: WATER IV SCH ×2 (12:14)
[2018-09-11] MEDS: DEXTROSE 5% IV SCH ×2 (12:14)
[2018-09-11] MEDS: VANCOMYCIN HCL IV SCH ×2 (12:14)
[2018-09-11] MEDS: ALBUTEROL SULFATE/IPRATROPIUM 3 ML NEBU IH PRN ×2 (13:00→16:50)
[2018-09-11] MEDS: PREGABALIN 75 MG CAPSULE PO SCH (20:31)
[2018-09-12] MEDS: ALBUTEROL SULFATE/IPRATROPIUM 3 ML NEBU IH PRN ×2 (00:27→06:05)
[2018-09-12] MEDS: CEFEPIME HCL 2 GM in DEXTROSE 5 % IN WATER 100 ML IV SCH ×2 (05:13)
[2018-09-12 05:37] LABS: Hematocrit 32.8 % (42.0-52.0); Hemoglobin 10.7 gm/dL (13.5-18.0); Mean Cell Volume 87.5 fl (78-100); Mean Corpuscular Hemoglobin 28.5 pg (27-31); Mean Corpuscular Hgb Conc 32.6 g/dl (32-36); Mean Platelet Volume 10.4 fl (8-11.3); Platelet Count 196 K/mm3 (150-450); Red Blood Count 3.75 M/mm3 (4.7-6.0); Red Cell Distribution Width 17.7 % (11.5-14.0); White Blood Count 4.7 K/mm3 (4.0-10.5)
[2018-09-12 05:43] LABS: Total Cells Counted 100
[2018-09-12 05:54] LABS: Eosinophil 1 % (0-3); Lymphocyte 7 % (20-51); Neutrophil 92 % (42-75); Neutrophil # 4.3 K/mm3 (1.3-6.0); Platelet Estimate Normal (NORMAL); RBC Morphology Normal (NORMAL)
[2018-09-12 07:19] LABS: Albumin * 1.7 gm/dl (3.4-5.0); Anion Gap 14.7 mmol/L (6.8-13.8); BUN/Creatinine Ratio 23.7 (9.0-21.6); Bilirubin, Total 0.7 mg/dL (0.0-1.1); Ca. Corrected For Albumin 9.6 mg/dL (8.4-10.2); Calcium * 8.1 mg/dL (7.9-10.9); Carbon Dioxide 22.6 mmol/L (24-32.6); Potassium 4.3 mmol/L (3.4-4.6)
[2018-09-12] MEDS: CALCIUM CARBONATE/VITAMIN D3 1 TAB TABLET PO SCH (09:02)
[2018-09-12] MEDS: AMIODARONE HCL 200 MG TABLET PO SCH (09:02)
[2018-09-12] MEDS: APIXABAN 5 MG TABLET PO SCH (09:03)
[2018-09-12] MEDS: DOCUSATE SODIUM 100 MG CAPSULE PO SCH (09:03)
[2018-09-12] MEDS: SACCHAROMYCES BOULARDII 250 MG CAPSULE PO SCH (09:04)
[2018-09-12] MEDS: METOPROLOL TARTRATE 25 MG TABLET PO SCH (09:05)
[2018-09-12] MEDS: OMEGA-3 FATTY ACIDS 1 CAP CAPSULE PO SCH (09:08)
[2018-09-12] MEDS: MULTIVITAMINS 1 CAP CAPSULE PO SCH (09:08)
[2018-09-12] MEDS: FAMOTIDINE 20 MG TABLET PO SCH (09:09)
[2018-09-12] MEDS: OSELTAMIVIR PHOSPHATE 75 MG CAPSULE PO SCH (09:10)
[2018-09-12] MEDS: LISINOPRIL 10 MG TABLET PO SCH (09:10)
[2018-09-12] MEDS: CO Q10 100 MG PO SCH (09:18)
[2018-09-12] MEDS: SAW PALMETTO 320 MG PO SCH (09:18)
[2018-09-12] MEDS: MAGNESIUM 300 MG PO SCH (09:18)
[2018-09-12] MEDS: FEROCON PO SCH (09:18)
[2018-09-12] MEDS: WATER IV SCH ×2 (10:40)
[2018-09-12] MEDS: DEXTROSE 5% IV SCH ×2 (10:40)
[2018-09-12] MEDS: VANCOMYCIN HCL IV SCH ×2 (10:40)
--- NOTE | 2018-09-12 12:09 | DS ---
Transfer Discharge Summary - Diagnosis(s)/Problems (1) Right upper lobe pneumonia Problem: Acute (2) Influenza A Problem: Acute (3) Multiple myeloma Problem: Chronic (4) Atrial fibrillation Problem: Chronic (5) Respiratory difficulty Problem: Acute (6) Bilateral pneumonia Problem: Acute (7) Respiratory failure Problem: Acute (8) Immunosuppressed status Problem: Acute - Course Description of Stay: 73-year-old male with past medical history of multiple myeloma, peripheral neuropathy, atrial fibrillation, hypertension, was admitted to [facility] for right-sided pneumonia, influenza type a, and difficulty breathing. Chest x-ray upon admission demonstrated infiltrates in the right upper lobe and labs demonstrated neutropenia indicating that the patient was immunosuppressed from previous treatment of his multiple myeloma. Upon arriving to the hospital patient reported worsening shortness of breath, fever, and not feeling himself for the past several weeks. There was a positive influenza A result therefore patient was placed on Tamiflu. Blood cultures and sputum cultures were ordered, blood cultures so far negative and we have not been able to collect sputum cultures. Patient was placed on IV antibiotics which was optimized yesterday given the fact that his clinical condition was not improving, however this morning patient appears to be worsening. He has been on BiPAP machine for the past 48 hours and respiratory function is not improving and is not maintaining oxygenation on the machine. Therefore given these fin dings decision to transfer patient to [facility] so he can be evaluated by neurologist was taken. Procedures Performed: none - Results and Findings Results and Findings: Laboratory Results - last 24 hr 09/12/18 09/12/18 09/12/18 05:32 05:32 05:52 WBC 4.7 D RBC 3.75 L Hgb 10.7 L Hct 32.8 L MCV 87.5 MCH 28.5 MCHC 32.6 RDW 17.7 H Plt Count 196 MPV 10.4 Neutrophils % (Manual) 92 H Lymphocytes % (Manual) 7 L Eosinophils % (Manual) 1 Neutrophils # (Manual) 4.3 Lymphocytes # (Manual) 0.3 L Eosinophils # (Manual) 0.0 Nucleated RBCs 1.0 Platelet Estimate Normal RBC Morphology Normal pCO2 25.7 L pO2 52.1 L HCO3 19.1 L Total CO2 19.9 Base Excess -2.5 L ABG pH 7.49 H ABG O2 Sat (Measured) 90.2 L Sodium 130 L Plasma Sodium 130 Potassium 4.3 Chloride 97 Carbon Dioxide 22.6 L Anion Gap 14.7 H BUN 27 H Creatinine 1.14 Est GFR (Non-Af Amer) 67 BUN/Creatinine Ratio 23.7 H Random Glucose 101 Calcium 8.1 Calcium Adj for Albumin 9.6 Total Bilirubin 0.7 AST 70 H ALT 95 H Alkaline Phosphatase 107 Total Protein 5.0 L Albumin 1.7 L - Medications Medications: Active Medications Albuterol/Ipratropium (Duoneb 2.5-0.5mg/3ml Soln) 3 ml IH Q4H PRN PRN Reason: Shortness Of Breath/Wheezing Stop: 10/09/18 06:31 Last Admin: 09/12/18 06:05 Dose: 3 ml Documented by: Amiodarone HCl (Cordarone) 200 mg PO DAILY [facility] Stop: 10/09/18 10:16 Last Admin: 09/12/18 09:02 Dose: 200 mg Documented by: Apixaban (Eliquis) 5 mg PO BID [facility] Stop: 10/09/18 11:31 Last Admin: 09/12/18 09:03 Dose: 5 mg Documented by: Calcium/Vitamin D (Calcarb 600 With Vitamin D) 1 tab PO DAILY [facility] Stop: 10/09/18 11:31 Last Admin: 09/12/18 09:02 Dose: 1 tab Documented by: Dexamethasone (Decadron) 40 mg PO Q7D [facility] Stop: 10/09/18 11:31 Last Admin: 09/09/18 14:03 Dose: Not Given Documented by: Docusate Sodium (Colace) 100 mg PO DAILY [facility] Stop: 10/09/18 11:31 Last Admin: 09/12/18 09:03 Dose: 100 mg Documented by: Famotidine (Pepcid) 20 mg PO DAILY [facility] Stop: 10/10/18 09:01 Last Admin: 09/12/18 09:09 Dose: 20 mg Documented by: Guaifenesin (Robitussin) 100 mg PO Q4H PRN PRN Reason: Cough Stop: 10/10/18 10:50 Last Admin: 09/11/18 08:20 Dose: 100 mg Documented by: Cefepime HCl 2 gm/ Dextrose/ (Water) 100 mls @ 200 mls/hr IV Q8H [facility]; Protocol Stop: 10/09/18 14:01 Last Admin: 09/12/18 05:13 Dose: 200 mls/hr Documented by: Vancomycin HCl 2.25 gm/ (Dextrose/Water) 500 mls @ 200 mls/hr IV Q24H [facility]; Protocol Stop: 10/11/18 11:31 Last Admin: 09/12/18 10:40 Dose: 200 mls/hr Documented by: Lisinopril (Zestril) 10 mg PO DAILY [facility] Stop: 10/09/18 11:31 Last Admin: 09/12/18 09:10 Dose: 10 mg Documented by: Metoprolol Tartrate (Lopressor) 25 mg PO BID [facility] Stop: 10/09/18 18:01 Last Admin: 09/12/18 09:05 Dose: 25 mg Documented by: Multivitamins/Folic Acid (Multivitamin Yloanda) 1 cap PO DAILY [facility] Stop: 10/09/18 11:31 Last Admin: 09/12/18 09:08 Dose: 1 cap Documented by: Co Q-10 100 Mg (Softgel) 1 each PO BID [facility] Stop: 10/09/18 11:31 Last Admin: 09/12/18 09:18 Dose: Not Given Documented by: Ferocon Capsule 1 each PO DAILY [facility] Stop: 10/09/18 11:31 Last Admin: 09/12/18 09:18 Dose: Not Given Documented by: Magnesium 300 Mg (Capsule) 300 mg PO DAILY [facility] Stop: 10/09/18 11:31 Last Admin: 09/12/18 09:18 Dose: Not Given Documented by: Saw [place] 320 Mg 320 mg PO DAILY [facility] Stop: 10/09/18 11:31 Last Admin: 09/12/18 09:18 Dose: Not Given Documented by: Folgard Tablet 1 each PO TID [facility] Stop: 10/09/18 13:01 Last Admin: 09/12/18 09:18 Dose: Not Given Documented by: [id number] Ethyl Esters ([place]-3 1000 Mg) 1 cap PO DAILY [facility] Stop: 10/09/18 11:31 Last Admin: 09/12/18 09:08 Dose: 1 cap Documented by: Oseltamivir Phosphate (Tamiflu) 75 mg PO BID [facility] Stop: 10/09/18 21:01 Last Admin: 09/12/18 09:10 Dose: 75 mg Documented by: Pregabalin (Lyrica) 75 mg PO HS [facility] Stop: 10/09/18 21:01 Last Admin: 09/11/18 20:31 Dose: 75 mg Documented by: Saccharomyces Boulardii (Florastor) 250 mg PO DAILY [facility] Stop: 10/09/18 11:31 Last Admin: 09/12/18 09:04 Dose: 250 mg Documented by: Discontinued Medications Albuterol/Ipratropium (Duoneb 2.5-0.5mg/3ml Soln) 3 ml IH ONCE ONE Stop: 09/09/18 01:26 Last Admin: 09/09/18 01:50 Dose: 3 ml Documented by: Sodium Chloride (Sodium Chloride 0.9%) 500 mls @ 999 mls/hr IV .Q31M ONE Stop: 09/09/18 02:00 Last Infusion: 09/09/18 02:05 Dose: Infused Documented by: Sodium Chloride (Sodium Chloride 0.9%) 500 mls @ 999 mls/hr IV .Q31M ONE Stop: 09/09/18 02:47 Last Infusion: 09/09/18 02:52 Dose: Infused Documented by: Cefepime HCl (Maxipime 1 Gm Er Piggyback) 1 gm in 100 mls @ 200 mls/hr IV ONCE ONE Stop: 09/09/18 06:20 Last Admin: 09/09/18 06:14 Dose: 200 mls/hr Documented by: Cefepime HCl 2 gm/ Dextrose/ (Water) 100 mls @ 200 mls/hr IV Q8H [facility]; Protocol Stop: 10/09/18 11:31 Last Admin: 09/10/18 08:26 Dose: Not Given Documented by: Sodium Chloride (Sodium Chloride 0.9%) 1,000 mls @ 100 mls/hr IV .Q10H ONE Stop: 09/10/18 20:59 Last Infusion: 09/10/18 23:22 Dose: Infused Documented by: Oseltamivir Phosphate (Tamiflu) 75 mg PO ONCE ONE Stop: 09/09/18 05:50 Last Admin: 09/09/18 05:57 Dose: 75 mg Documented by: - Disposition Disposition: Short Term Hospital Inpatient Condition: Stable Discharge Date: 09/12/18 Discharge Time: 12:08
[2018-09-12 14:00] VITALS: BP 114/64
== END 2018-09-12 12:30 | disposition short-term general hospital (02) | DRG 193 ==
LOC: MS 00:46 → ER 00:46 → MS 06:20
PROVIDERS: ADMIT Family Medicine; ATTEND Family Medicine
DX: J10.1 Influenza due to other identified influenza virus with other respiratory manifestations; G62.0 Drug-induced polyneuropathy; R00.2 Palpitations; Z79.01 Long term (current) use of anticoagulants; I48.91 Unspecified atrial fibrillation; J96.01 Acute respiratory failure with hypoxia; C90.00 Multiple myeloma not having achieved remission
CPT/HCPCS: 36415; 36600; 71010; 71020; 71045; 71046; 80053; 82803; 84484; 85007; 85025; 87040; 87400; 87449; 93005; 94640; 94660; 94664; 94760; 96361; 96365; 99285